=== PATIENT | female | born 2000 | race Caucasian/White ===

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

== ENCOUNTER → 2020-01-13 | Outpatient (REF) | payer BC | LOC: M SFHCLERA 14:11 | PROVIDERS: ATTEND Physician Assistant | DX: L05.01 Pilonidal cyst with abscess (principal) ==